=== PATIENT | male | born 1980 | race African-American/Black ===

== ENCOUNTER 2017-12-03 14:42 | Emergency (ER) | payer SELFPAY ==
[~2017-12-03] VITALS: Ht 175.3 cm; Wt 100.0 kg
[~2017-12-03 14:42] MED LIST: OXYC-360 PO; PENI500T PO; Z.0.NO CURRENT MEDS
[2017-12-03 14:45] VITALS: BP 197/108; PULSE 84; RESP 18; TEMP 98.3; O2SAT 100
[2017-12-03] MEDS ORDERED: SULFAMETHOXAZOLE-TRIMETHOPRIM DS 800-160 MG TAB PO ONE (15:00)
[2017-12-03] MEDS ORDERED: CLINDAMYCIN PHOS 300 MG/2 ML VIAL IM ONE (15:00)
--- NOTE | 2017-12-03 15:03 | PD ---
HPI Chief Complaint: Skin Problem Time Seen by Provider: 14:49 Travel History International Travel<30 days: No Contact w/Intl Traveler<30days: No Traveled to known affect area: No History of Present Illness HPI Patient has had a left lump on his left shoulder that has been present for the past 5-7 days, he has continued to increase in size, he has not sought any care until today. But he did use someone else's leftover antibiotics for about 2 or 3 days and according to him he did not seem to have any difference in it and so he decided to come in and get it evaluated. Patient denies any alleviating or aggravating factors. Patient states that he had his tetanus updated in 2013. Patient denies any associated symptoms such as fever, rash, cough, chest pain, abdominal pain, back pain, nausea, vomiting, diarrhea. No known drug allergy Patient denies any significant past medical or surgical history PFSH Past Medical History Diminished Hearing: No Social History Alcohol Use: No Tobacco Use: No Allergies-Medications (Allergen,Severity, Reaction): Coded Allergies: No Known Allergies (Verified Allergy, Unknown, 12/03/17) Reported Meds & Prescriptions Reported Meds & Active Scripts Active No Active Prescriptions or Reported Medications Review of Systems General / Constitutional: No: Fever Eyes: No: Visual changes HENT: No: Headaches Cardiovascular: No: Chest Pain or Discomfort Respiratory: No: Shortness of Breath Gastrointestinal: No: Abdominal Pain Genitourinary: No: Dysuria Musculoskeletal: No: Pain Skin: Positive Lumps Neurologic: No: Weakness Psychiatric: No: Depression Endocrine: No: Polydipsia Hematologic/Lymphatic: No: Easy Bruising Physical Exam Narrative GENERAL: SKIN: Warm and dry. HEAD: Atraumatic. Normocephalic. EYES: Pupils equal and round. No scleral icterus. No injection or drainage. ENT: No nasal bleeding or discharge. Mucous membranes pink and moist. NECK: Trachea midline. No JVD. CARDIOVASCULAR: Regular rate and rhythm. RESPIRATORY: No accessory muscle use. Clear to auscultation. Breath sounds equal bilaterally. GASTROINTESTINAL: Abdomen soft, non-tender, nondistended. MUSCULOSKELETAL: Extremities without clubbing, cyanosis, or edema. No obvious deformities. Left shoulder abscess is open and draining approximately 6 cm in diameter and raised approximately 2 cm in maximum height, no palpable crepitus, no streaking, and no surrounding lymphadenopathy. NEUROLOGICAL: Awake and alert. No obvious cranial nerve deficits. Motor grossly within normal limits. Five out of 5 muscle strength in the arms and legs. Normal speech. PSYCHIATRIC: Appropriate mood and affect; insight and judgment normal. Data Data Last Documented VS Vital Signs Date Time Temp Pulse Resp B/P (MAP) Pulse Ox O2 Delivery O2 Flow Rate FiO2 12/03/17 15:49 71 18 175/106 (129) 100 Room Air 12/03/17 14:45 98.3 Orders Orders Clindamycin Inj (Cleocin Inj) (12/03/17 15:00) Sulfamet-Trimeth Ds 800-160 Mg (Bactrim (12/03/17 15:00) Wound Culture And Gram Stain (12/03/17 14:55) MDM Medical Decision Making Medical Screen Exam Complete: Yes Emergency Medical Condition: Yes Medical Record Reviewed: Yes Differential Diagnosis Cellulitis versus abscess versus lymphangitis Narrative Course Clinically the patient had an open draining abscess, patient will be given clindamycin IM and Bactrim Diagnosis Primary Impression: SPONTANEOUSLY DRAINING ABSCESS Patient Instructions: Abscess (GEN), General Instructions Scripts Doxycycline Hyclate (Doxycycline Hyclate) 100 Mg Cap 100 MG PO BID for Infection, #20 CAP 0 Refills Prov: Yaw Rey MD 12/03/17 Sulfamethoxazole-Trimethoprim (Bactrim DS) 800-160 Mg Tab 1 TAB PO BID for Infection, #20 TAB 0 Refills Prov: Yaw Rey MD 12/03/17 Disposition: 01 DISCHARGE HOME Condition: Stable Yaw Rey MD Dec 03, 2017 15:03
[2017-12-03 15:49] VITALS: BP 175/106; PULSE 71; RESP 18; O2SAT 100
[2017-12-03] MEDS ORDERED: BACT800T5 PO (16:09)
[2017-12-03] MEDS ORDERED: DOXY100C PO (16:09)
== END 2017-12-03 16:35 | disposition home or self-care (01) ==
LOC: NEPE 14:42
DX: L02.414 Cutaneous abscess of left upper limb (principal); B95.62 Methicillin resistant Staphylococcus aureus infection as the cause of diseases classified elsewhere
CPT/HCPCS: 86403; 87070; 87186; 87205; 96372

== ENCOUNTER 2017-12-07 10:21 | Emergency (ER) | payer SELFPAY ==
[~2017-12-07 10:21] MED LIST changes: +BACT800T5 PO; +DOXY100C PO; -OXYC-360 PO; -PENI500T PO; -Z.0.NO CURRENT MEDS
[2017-12-07 10:33] VITALS: BP 197/126; PULSE 74; RESP 17; TEMP 98.6; O2SAT 99
--- NOTE | 2017-12-07 10:58 | PD ---
HPI Chief Complaint: Skin Problem Time Seen by Provider: 10:39 Travel History International Travel<30 days: No Contact w/Intl Traveler<30days: No Traveled to known affect area: No History of Present Illness HPI Patient is a 36-year-old male presenting for reevaluation of an abscess to his left shoulder. Patient was seen on December 03, 2017. He was prescribed antibiotics which he reports compliance to. He presents today stating that the wound is not healing. He denies any fevers or chills, drainage, warmth or redness. Patient has been using peroxide twice a day to clean his wound. [facility] Past Medical History Medical History: Denies Significant Hx Diminished Hearing: No Immunizations Current: Yes Past Surgical History Surgical History: No Previous Surgery Social History Alcohol Use: Yes (RARELY) Tobacco Use: No Substance Use: No Allergies-Medications (Allergen,Severity, Reaction): Coded Allergies: No Known Allergies (Verified Allergy, Unknown, 12/07/17) Reported Meds & Prescriptions Reported Meds & Active Scripts Active Doxycycline Hyclate 100 Mg Cap 100 Mg PO BID Bactrim DS (Sulfamethoxazole-Trimethoprim) 800-160 Mg Tab 1 Tab PO BID Review of Systems Except as stated in HPI: all other systems reviewed are Neg Skin: Positive Lesions Physical Exam Narrative GENERAL: Well-developed, well-nourished, alert -[place] male. Presenting in no acute distress. SKIN: Warm and dry. 1 cm x 1 cm ulcerated lesion to the left anterior shoulder. No induration or erythema noted, no foul odor or drainage. HEAD: Atraumatic. Normocephalic. EYES: Pupils equal and round. No scleral icterus. No injection or drainage. ENT: No nasal bleeding or discharge. Mucous membranes pink and moist. NECK: Trachea midline. No JVD. CARDIOVASCULAR: Regular rate and rhythm. RESPIRATORY: No accessory muscle use. Clear to auscultation. Breath sounds equal bilaterally. GASTROINTESTINAL: Abdomen soft, non-tender, nondistended. Hepatic and splenic margins not palpable. MUSCULOSKELETAL: Extremities without clubbing, cyanosis, or edema. No obvious deformities. NEUROLOGICAL: Awake and alert. No obvious cranial nerve deficits. Motor grossly within normal limits. Five out of 5 muscle strength in the arms and legs. Normal speech. PSYCHIATRIC: Appropriate mood and affect; insight and judgment normal. Data Data Last Documented VS Vital Signs Date Time Temp Pulse Resp B/P (MAP) Pulse Ox O2 Delivery O2 Flow Rate FiO2 12/07/17 10:33 98.6 74 17 197/126 (149) 99 [facility] Medical Decision Making Medical Screen Exam Complete: Yes Emergency Medical Condition: Yes Medical Record Reviewed: Yes Interpretation(s) Vital Signs Date Time Temp Pulse Resp B/P (MAP) Pulse Ox O2 Delivery O2 Flow Rate FiO2 12/07/17 10:33 98.6 74 17 197/126 (149) 99 Differential Diagnosis Cellulitis versus abscess versus normal wound healing versus other Narrative Course Patient is well-appearing 36-year-old male presenting for reevaluation of an abscess he presented with 4 days ago. Medical records reviewed, patient was placed on antibiotics, the wound culture/microbiology report shows susceptibility to doxycycline and Bactrim both of which patient reports compliance with. Patient was advised to stop using peroxide on the wound. Additionally wound was packed with iodoform, a clean dry dressing was placed. Patient was educated thoroughly on wound care. He was advised to leave packing in place for 2 days, he was given additional packing and supplies to change dressings with at home. Patient was advised to only wash with soap and water. He was advised to return to emergency department immediately for any new or worsening symptoms. Patient verbalized understanding. Patient stable for discharge. Diagnosis Primary Impression: Wound check, abscess Referrals: [facility] Primary Care Physician Patient Instructions: Abscess Follow-up (ED), Acute Wound Care (GEN), General Instructions Departure Forms: Tests/Procedures, Work Release Special Instructions: Light duty for 10 days Additional Instructions: Change dressings daily and as needed for soiling, change packing every 48 hours as discussed. Do not use peroxide Clean with soap and water only Complete full course of antibiotics as previously prescribed Return to emergency department for any new or worsening symptoms Med/Other Pt SpecificInfo: No Change to Meds Disposition: 01 DISCHARGE HOME Condition: Stable Michaela Christy Dec 07, 2017 10:58
== END 2017-12-07 11:16 | disposition home or self-care (01) ==
LOC: NEPD 10:21
DX: Z48.817 Encounter for surgical aftercare following surgery on the skin and subcutaneous tissue (principal)
CPT/HCPCS: 99281